=== PATIENT | male | born 1960 | race African-American/Black ===

== ENCOUNTER 2016-11-01 04:15 | Inpatient (IN) | payer OTHER ==
[~2016-11-01] VITALS: Ht 190.5 cm; Wt 101.4 kg
[~2016-11-01 04:15] MED LIST: CAR30 PO; ECO81 PO; METOPROLOL TART25 M1 PO; METP PO; MULTIVITAMIN1 SGL PO; ZESTRIL20 MG PO
--- NOTE | 2016-11-01 04:50 | NUR ---
PT IN ED FOR CO DIARRHEA X1 WEEK. 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 PT ALSO STS FEELINGS OF "PRESSURE" TO ABD BUT NO PAIN; PRESSURE HAS SINCE BEEN RELIEVED SINCE HAVING BLOODY STOOL; FIRST WAS DARK RED, SECOND WAS "A LOT AND BRIGHT" ABOUT "A CUP" WORTH OF BLOOD. PT STS PCP RECENTLY STARTED PT ON 25 MG OF CARVEDILOL AND THINKS THAT IS A POSSIBLE CAUSE OF BLOODY STOOL. PT AWAKE ALERT, RESP E/U, CONNECTED TO FULL CM. EKG PERFORMED BY JEFF MORSE, MEDS AND FLUIDS GIVEN PER MD ORDER; SEE EMAR.
[2016-11-01 04:51] LABS: BASOPHIL % 0.7 % (0-2); PLATELET COUNT 319 x10^3mcL (130-400); RED CELL DISTRIBUTION WIDTH 13.4 % (11.5-14.5)
[2016-11-01 05:00] LABS: CALCIUM 8.2 mg/dL (8.5-10.1); CARBON DIOXIDE 22.8 mmol/L (21-32); CHLORIDE SERUM 105 mmol/L (98-107); CREATININE SERUM 1.3 mg/dL (0.7-1.3); GFR1 > 60 mL/min; GLUCOSE SERUM 139 mg/dL (74-106); POTASSIUM SERUM 4.5 mmol/L (3.5-5.1); SODIUM SERUM 140 mmol/L (136-145)
[2016-11-01 05:04] LABS: ALKALINE PHOSPHATASE 64 U/L (46-116); ALT/SGPT 27 U/L (16-63); AST/SGOT 13 U/L (15-37); BILIRUBIN TOTAL 0.14 mg/dL (0.20-1.00); HDL CHOLESTEROL 42 mg/dL (40-60); PHOSPHOROUS 2.2 mg/dL (2.5-4.9); TOTAL PROTEIN, SERUM 6.6 g/dL (6.4-8.2); URIC ACID 5.7 mg/dL (3.5-7.2)
[2016-11-01 05:08] LABS: ALBUMIN 2.9 g/dL (3.4-5.0); CHOLESTEROL 131 mg/dL (<200)
--- NOTE | 2016-11-01 05:19 | NUR ---
PT AWAKE ALERT, RESP E/U, STS NO PAIN AT THIS TIME. ADMIN MED PER MD ORDER; SEE EMAR. PT PROVIDED WITH BLANKET FOR COMFORT, CALL LIGHT IN REACH
--- NOTE | 2016-11-01 05:58 | NUR ---
PT STATED NEEDING TO GO TO RESTROOM; AMBULTED WITH STEADY GAIT. PT WAS THEM SEEN CRAWLING OUT TO RESTROOM, DIAPHORETIC. PT ASSISTED ONTO GURNEY AND WHEELED BACK TO ROOM. PT STATING FEELING LIGHT HEADED AFTER "IT ALL CAME OUT." BLOOD NOTED TO RESTROOM WALL, FLOOR, AND SEAT. EKG PERFORMED BY JEFF MORSE. PT AAO4, TACHYPNEIC, STS NO PAIN. PT RECONNECTED TO CM. PT STS HE DOES NOT THINK HE HIT HIS HEAD, STS "I THINK I WAS JUST IN SHOCK WHEN I SAW WHAT I SAW."
--- NOTE | 2016-11-01 06:29 | NUR ---
RESIDENT AT BEDSIDE WITH PT
--- NOTE | 2016-11-01 06:57 | NUR ---
REPORT GIVEN TO SHELIA TO ASSUME CARE
--- NOTE | 2016-11-01 07:05 | NUR ---
FLUIDS COMPLETED INFUSION; TOTAL OF 2 LITERS
--- NOTE | 2016-11-01 07:45 | NUR ---
RECEIVED THE PATIENT FROM ER DEPT [facility]IA [facility]; THE PATIENT AMBULATED WITH STEADY GAIT TO THE BED. PATIENT AWAKE AND ORIENTED TO PERSON, PLACE AND TIME. DENIED ANY SHORTNESS OF BREATH OR PAIN. REORIENTED THE PATIENT TO ROOM AND EQUIPMENT. VS CHECKED. TELE #[id number] WAS APPLIED TO THE PATIENT'S CHEST. ASSESSMENT WAS IMPLEMENTED. CALL LIGHT WITHIN REACH. SIDE RAILS UP X2. CONTINUE TO MONITOR.
[2016-11-01 07:47] LABS: FREE T4 1.1 ng/dL (0.76-1.46); FREE THYROXINE INDEX 2.6 ug/dL (1.4-4.5); T4(THYROXINE) 6.4 ug/dL (4.7-13.3)
[2016-11-01 08:07] VITALS: BP 118/89
[2016-11-01 08:14] LABS: T3 TOTAL 0.8 ng/mL
[2016-11-01 09:06] LABS: MAGNESIUM 1.9 mg/dL (1.8-2.4)
--- NOTE | 2016-11-01 09:50 | NUR ---
DR. PIZANO AND THE TEAM WERE MAKING ROUND TO SEE THE PATIENT. THE CARE PLAN WAS DISCUSSED WITH THE PATIENT.
--- NOTE | 2016-11-01 10:15 | NUR ---
DR. BYRD IN TO SEE THE PATIENT.
[2016-11-01 10:36] LABS: microscopic required? NO
--- NOTE | 2016-11-01 10:47 | NUR ---
DR. DELCID WAS AT BEDSIDE SEEING THE PATIENT.
[2016-11-01 10:48] LABS: urine erythrocyte NEGATIVE (NEGATIVE)
[2016-11-01 11:12] LABS: AMPHETAMINE QUAL UR NONE DETECTED (NEG <=1000)
--- NOTE | 2016-11-01 14:51 | NUR ---
DR. CASTAÑEDA-RESIDENT WAS NOTIFIED OF THE LATEST H/H ; DOCTOR WILL ADJUST THE IVF RATE.
[2016-11-01 15:14] VITALS: BP 136/97
[2016-11-01 18:16] VITALS: BP 120/81
--- NOTE | 2016-11-01 18:45 | NUR ---
THE PATIENT HAD BLOODY AND WATERY STOOL X4 DURING THE SHIFT DUE TO MOVIPREP FOR COLONOSCOPY TOMORROW. DR. DELCID SAW 1 TYPE OF STOOL WHEN HE SAW THE PATIENT AT BEDSIDE THIS MORNING.
--- NOTE | 2016-11-01 19:30 | NUR ---
RECEIVED PT IN BED AWAKE AND RESTING QUIETLY. HE IS ALERT AND ORIENTED X4. LUNGS CTA. NO SOB ON RA. ON TELE # 58 AND SHOWS A FLUTTER. PT DENIED FEELING PALPITATIONS. BOWEL SOUNDS ACTIVE. HE DENIED HAVING PAIN AT THIS TIME. PT WAS STARTED ON BOWEL PREP TODAY FOR COLONOSCOPY IN AM. W/ IVF NS AT 10 CC/HR VIA IVÁN. CALL LIGHT W/IN REACH.
[2016-11-01 22:18] VITALS: BP 132/79
--- NOTE | 2016-11-02 05:30 | NUR ---
PT SLEPT ON AND OFF. HE HAD NO C/O PAIN. PT CONTINUED ON BOWEL PREP DURING THE NIGHT. PT'S BM APPEARS CLEAR. NO GROSS BLEEDING NOTED IN BM. PT FOR COLONOSCOPY TODAY ORDERED.
[2016-11-02 05:40] VITALS: BP 121/75
--- NOTE | 2016-11-02 06:30 | NUR ---
INFORMED PT THAT COLONOSCOPY IS SCHEDULED AT 1400. PT GOT UPSET SAYING THAT HIS RIGHTS HAVE BEEN VIOLATED AND HAT HE'S BEEN PREPED THE WHOLE NIGHT FOR THE PROCEDURE. HE SAID HE IS NOT GOING TO WAIT UNTIL 2 PM AND NOW WANTS TO TALK TO THE SUPEVISOR AND A DOCTOR. EXPLAINED TO PT THAT WE HAVE BEEN TALKING TO THE SKEIN YARN DYER SINCE LAST NIGHT AND UNTIL THIS MORNING TRYING TO FIND OU HIS SCHEDULE . PT ALSO INFORMED EVERYTIME DURING THE NIGHT WHENEVER THE SKEIN YARN DYER WAS CALLED. CALLED DR. POOL AND INFOMED HER THAT PT WANTS TO SPEAK TO HER. ALSO TRIED TO CONTACT THE DIRECTOR OF SX/GI IF IT IS POSSIBLE TO PRIORITIZE THE PT ALTHOUGH PER SKEIN YARN DYER SHE SHE ALREADY TOLD CHARLI REGARDING PT'S CONCERN. SKE[employer] YARN DYER AGAIN CONTACTED AND SHE STATED THAT SHE AGAIN TALKED TO CHARLI WHO SAID THAT DR. DELCID WILL NOT BE HERE UNTIL NOON TIME.
--- NOTE | 2016-11-02 06:35 | NUR ---
DR. POOL IN ROOM AND TALKING TO THE PT. DOCTOR ANWERED ALL PT'S QUESTIONS. ALSO INFORMED PT THAT PER SX/ GI DIRECTOR, CHARLI. DR. DELCID WILL NOT BE IN IN THE HOSPITAL UNTIL NOON TIME. PT ALSO ASKED REGARDING HIS LAB WORKS. INFORMED DR. POOL THAT AM LABS NOT YET DRAWN AT THIS TIME. AND PT SAID HE DOES NOT WANT THE BLOOD DRAWN RIGHT NOW UNITL HE KNOWS THE RESULTS OF HIS LAB WORKS YESTERDAY. DR. POOL ADVISED PT THAT SHE WILL BRING UP IN THEIR MEETING REGARDING HIS CONCERNS.
--- NOTE | 2016-11-02 07:30 | NUR ---
RESUME CARE: PATIENT ALERT AND ORIENTED TO PERSON, PLACE AND TIME. PATIENT DENIED SHORTNESS OF BREATH, NAUSEA/VOMITING OR PAIN AT THIS TIME. PATIENT STATED HE HAD BM WITH CLEAR AND WATERY STOOL. IVF NS VIA H/L TO RIGHT UPPER ARM. ANOTHER H/L TO LFA. TELE # [id number] READS AFIB. CALL LIGHT WITHIN REACH. SIDE RAILS UP X2. CONTINUE TO MONITOR AND IMPLEMENT THE PATIENT'S NEEDS.
--- NOTE | 2016-11-02 07:36 | NUR ---
REPORT GIVEN TO AM NURSE.
--- NOTE | 2016-11-02 09:25 | NUR ---
DR. DALLAS AND THE TEAM WERE MAKING ROUND TO SEE THE PATIENT; HOWEVER, THE PATIENT WAS HAVING ECHO. DOCTOR BURT WILL COME BACK TO DISCUSS THE CARE PLAN WITH THE PATIENT.
--- NOTE | 2016-11-02 09:49 | NUR ---
ECHO COMPLETED DR DALLAS HERE TO SEE PT
--- NOTE | 2016-11-02 09:55 | NUR ---
DR. DALLAS AND THE NURSE DIRECTOR MARVIN CAME TO THE ROOM TO TALK TO THE PATIENT.
--- NOTE | 2016-11-02 10:00 | NUR ---
Late Entry for 1000: Accompanied Dr Isidro to speak to patient regarding concerns. Dr Isidro reviewed all of patients concerns and discussed plan of care with patient. Pt verbalized that he was not happy with having to wait for colonoscopy because he wanted to go home. Dr Isidro explained scheduling process with patient and verbalized to patient that he would follow up with GI for timing of procedure. Pt agreed that he would wait for procedure but wanted to go home immediately after. Dr Isidro explained to patient that because he would be under sedation that he would need someone to drive him home. Pt stated he had his own car and that he would drive himself home. Dr Isidro reminded patient that due to sedation he did not recommend patient leave without a ride and that patient would be assessed after procedure. Charge nurse Therese called GI to verify scheduling and made aware patient was scheduled for first case at . This information was shared with patient by Dr Isidro. Pt had no further questions at this time and verbalized understanding.
[2016-11-02 10:42] VITALS: BP 137/81
[2016-11-02 11:17] LABS: BASOPHIL % 0.7 % (0-2); PLATELET COUNT 278 x10^3mcL (130-400); RED CELL DISTRIBUTION WIDTH 13.2 % (11.5-14.5)
--- NOTE | 2016-11-02 11:40 | NUR ---
AT 0745, THE PATIENT REFUSED TO HAVE THE BLOOD DRAW AND WANTED TO BE UPDATED THE LAB RESULT YESTERDAY. DR. POOL- WAS NOTIFIED AND ASKED TO TALK TO THE PATIENT. AT 0815, DR. CASTAÑEDA- CAME AND TALKED TO THE PATIENT: INFORMING THE PATIENT LAB RESULTS AND DISCUSSED WITH THE PATIENT ABOUT THE PLAN. AT 1130, THE PATIENT CALLED AND ASKED WHEN HE WOULD GO TO THE PROCEDURE. THE PILOT BOAT OPERATOR CALLED GI LAB AND WAS INFORMED THAT DR. DELCID WAS NOT HERE YET, AND HE WAS THE FIRST CASE TO BE DONE. THE PATIENT WAS INFORMED OF THAT. ALSO, DR. BAIRD- WAS INFORMED THAT THE PATIENT WANTED TO KNOW WHEN HE WILL BE TAKEN TO THE PROCEDURE. DOCTOR WILL COME AND TALK TO HIM SOON. AT 1140, THE PATIENT WAS INFOMRED THE PATIENT WAS INFORMED OF THE LAB RESULT TODAY.
--- NOTE | 2016-11-02 12:55 | NUR ---
Patient called and reported that there is leaking at IV site. Went to patient room and checked IV. Attending nurse -Larissa also present. No leaking noted at IV site. Patient expressed concern regarding colonoscopy not done yet and he is been without food for 24 hours. Patient informed that GI lab was called regarding estimated time of the procedure and per Brittany-GI lab nurse, dr. Derrick Gunn is not here yet and she is not able to provide an exact time for the procedure. Dr Barbour also made aware and she said that a text was sent to dr. Gunn re: procedure time but she does not have any response from dr. Gunn at this time. Makayla Lam- Director made aware about patient's multiple concerns about care and she came to address the issues with the patient. Will continue to monitor patient and maintain safety.
--- NOTE | 2016-11-02 13:30 | NUR ---
Received a call in nursing administration, pt requesting a "form to write a complaint". Went in to speak to patient to address concerns and to provide complaint form. Pt expressed frustration that he had not had procedure. Reminded patient that as explained to him this morning procedure was scheduled at 2pm but charge nurse had already called to get update. Shared with patient that Dr Gunn was not here yet but we would inform him as soon as we received an update. Also shared with him that a call was placed to Dr Gunn and we were waiting for response. Patient again verbalized wanted to leave as soon as procedure was over and stated "I want to know that when I come back from procedure you guys will have everything ready for me to leave in 30minutes". Explained to patient that paperwork can be completed within 30minutes however as Dr Isidro explained to him this morning we will need to reassess prior to discharge due to sedation. Pt appeared content with response but also offered patient complaint form. Pt stated he did not want to write a complaint but accepted form. After leaving room notified by charge nurse that GI had called and they were going to case picker patient in 10 minutes. Charge nurse witnessed walking back to patients room and notified patient. Verbalized to patient that I would follow up with
--- NOTE | 2016-11-02 13:41 | NUR ---
THE PATIENT WAS TAKEN TO GI LAB FOR PROCEDURE. BEFORE THE PATIENT LEFT THE ROOM, THE PAIENT WAS TOLD BY THE CHARGE NURSE THAT SECURITY WILL COME AND THE PAIENT'S BELONGINGS WILL BE SENT TO THE SAFE; HOWEVER, THE PATIENT SAID,"I JUST LEAVE MY BELONGINGS IN THE STAND THEN; ONLY $10 IN MY WALLET."
[2016-11-02 15:40] VITALS: BP 126/90
--- NOTE | 2016-11-02 15:40 | NUR ---
RECEIVED THE PATIENT FROM RECOVERY ROOM S/P COLONOSCOPY. THE PATIENT AWAKE AND DENIED ANY DISCOMFORT. THE PATIENT KNEW HE WAS IN THE ROOM, TIME. VS CHECKED (SEE VS DOCUMENT). THE PATIENT WAS ADVICED TO STAY AND REST S/P SEDATION, AND IT WAS NOT SAFE FOR THE PATIENT TO LEAVE THE HOSPITAL WITHIN 30 MINUTES. HOWEVER, THE PATIENT STATED, "I ALREADY TALKED TO DR. DALLAS THIS MORNING, AND I WANT TO GO HOME IN 30 OR 45 MINITES. YOU DON'T NEED TO WORRY FOR ME." CALL LIGHT WITHIN REACH. SIDE RAILS UP X2. CONTINUE TO MONITOR.
[2016-11-02] MEDS ORDERED: LOPRESSOR50 M1 PO (16:10)
[2016-11-02 16:56] VITALS: BP 126/90
--- NOTE | 2016-11-02 17:00 | NUR ---
Notified by the attending nurse Larissa that patient is discharged home, discharge paperwork is completed and patient will drive home. Spoke to dr. Ambriz re: driving after the sedation and he said that if patient is not drowsy and they have been 2 hours after the procedure he can drive. Went to see patient and he said he would like to leave and he denies any drowsiness. Attending nurse present in the room and she will review the dc instructions with patient.
--- NOTE | 2016-11-02 17:47 | NUR ---
DISCHARGE INSTRUCTION WAS EXPLAINED AND HANDED TO THE PATIENT. ALL QUESTIONS WERE ANSWERED AND THE PATIENT VERBALIZED UNDERSTANDING. BOTH H/L WAS REMOVED WITH CATH TIP INTACT. TELE WAS REMOVED. VERIFYING AGAIN WITH THE PATIENT IF HE FELT DIZZY OR DROWSY. THE PAIENT DENIED ANY OF THOSE. THE PATIENT REALY WANTED TO LEAVE THE HOSPITAL.
--- NOTE | 2016-11-02 17:50 | NUR ---
THE PATIENT WAS ESCORTED TO THE LOBBY. ALL BELONGINGS WERE SENT HOME WITH THE PATIENT UPON DISCHARGE.
--- NOTE | 2016-11-02 19:10 | NUR ---
THE PATIENT CALLED TO THE NURSE STATION FROM HOME TELLING THAT HE WAS AT HOME.
== END 2016-11-02 17:51 | disposition home or self-care (01) | DRG 308 ==
LOC: ED 04:15 → DU 05:39
PROVIDERS: Emergency Medicine; Internal Medicine Gastroenterology; ADMIT Family Medicine
PROC: 0DBF8ZX Excision of Right Large Intestine, Via Natural or Artificial Opening Endoscopic, Diagnostic (ICD-10-PCS; 2016-11-02)
PROC: 0DBH8ZX Excision of Cecum, Via Natural or Artificial Opening Endoscopic, Diagnostic (ICD-10-PCS; 2016-11-02)
PROC: 0DBP8ZX Excision of Rectum, Via Natural or Artificial Opening Endoscopic, Diagnostic (ICD-10-PCS; 2016-11-02)
PROC: 0W3P8ZZ Control Bleeding in Gastrointestinal Tract, Via Natural or Artificial Opening Endoscopic (ICD-10-PCS; principal; 2016-11-02 14:00)
PROC: 0DBN8ZX Excision of Sigmoid Colon, Via Natural or Artificial Opening Endoscopic, Diagnostic (ICD-10-PCS; 2016-11-02 14:00)
DX: I48.92 Unspecified atrial flutter (principal); K57.33 Diverticulitis of large intestine without perforation or abscess with bleeding; E44.0 Moderate protein-calorie malnutrition; K64.8 Other hemorrhoids; I10 Essential (primary) hypertension; E83.39 Other disorders of phosphorus metabolism; D64.9 Anemia, unspecified; E78.5 Hyperlipidemia, unspecified; Z68.27 Body mass index [BMI] 27.0-27.9, adult; Z79.82 Long term (current) use of aspirin
CPT/HCPCS: 45378; 83880; 84439; J1200; J1610; J2060; J2250; J2310; J3010; J3490; J7030